=== PATIENT | female | born 1970 | race Caucasian/White ===

== ENCOUNTER 2021-12-30 05:37 | Outpatient (CLI) | payer BC ==
[~2021-12-30] VITALS: Ht 167.6 cm; Wt 123.4 kg
[2021-12-30] MEDS ORDERED: DAPA10TA PO (16:02)
[2021-12-30] MEDS ORDERED: IRBE1TAB67 PO (16:02)
[2021-12-30] MEDS ORDERED: ESCI10TA PO (16:02)
[2021-12-30] MEDS ORDERED: AMLO-250 PO (16:02)
[2021-12-30] MEDS ORDERED: METF-397 PO (16:02)
[2021-12-30] MEDS ORDERED: GABA300C PO (16:02)
[2021-12-30] MEDS ORDERED: MTP25TSR PO (16:02)
[2021-12-30] MEDS ORDERED: MONT10TA21 PO (16:02)
== END 2021-12-30 16:12 | disposition home or self-care (01) ==
LOC: PREOP 05:37
PROVIDERS: ATTEND Podiatrist Foot & Ankle Surgery
DX: Z01.818 Encounter for other preprocedural examination (principal)

== ENCOUNTER 2022-01-06 06:06 | Day surgery (SDC) | payer BC ==
[2022-01-06] VITALS (8 sets, daily range): BP systolic 101–145; BP diastolic 54–75
[~2022-01-06] VITALS: Ht 167.6 cm; Wt 123.4 kg
[~2022-01-06 06:06] MED LIST: AMLO-250 PO; DAPA10TA PO; ESCI10TA PO; GABA300C PO; IRBE1TAB67 PO; METF-397 PO; MONT10TA21 PO; MTP25TSR PO
[2022-01-06] MEDS ORDERED: ceFAZolin INJECTION 1,000 MG VIAL IV ONE (06:30)
[2022-01-06] MEDS ORDERED: LACTATED RINGERS 1,000 ML IV PRN (06:30)
[2022-01-06] MEDS ORDERED: fentaNYL INJ 100 MCG/2 ML AMP ONE (06:57)
[2022-01-06] MEDS ORDERED: MIDAZOLAM 2 MG/2 ML (VERSED) VIAL ONE (06:57)
[2022-01-06] MEDS ORDERED: ONDANSETRON 4 MG/2 ML (SDV) Z0FRAN ONE (06:57)
[2022-01-06] MEDS ORDERED: LIDOCAINE 1% INJ 20 ML VIAL ONE (07:19)
[2022-01-06] MEDS ORDERED: BUPIVACAINE 0.5% 30 ML (SENSORCAINE) VIAL ONE (07:19)
--- NOTE | 2022-01-06 07:48 | Progress Note-Pre Operative ---
Pre-Operative Progress Note H&P Reviewed The H&P was reviewed, patient examined and no changes noted. Date Seen by Provider: Jan 06, 2022 Time Seen by Provider: 07:48 Date H&P Reviewed: Jan 06, 2022 Time H&P Reviewed: 07:48 Pre-Operative Diagnosis: Hammertoe, exostosis, right 5th toe ARCELIA HUBER DPM Jan 06, 2022 07:48
[2022-01-06] MEDS ORDERED: PROPOFOL INJECTION 50 ML IV ONE ×2 (08:03→08:19)
--- NOTE | 2022-01-06 08:41 | Progress Note-Post Operative ---
Post-Operative Progess Note Surgeon (s)/Lead Mechanical Engineer (s) Surgeon ARCELIA HUBER DPM Lead Mechanical Engineer: none Pre-Operative Diagnosis Hammertoe, exostosis, right 5th toe Post-Operative Diagnosis same Procedure & Operative Findings Date of Procedure 01/06/22 Procedure Performed/Findings Reduction of hammertoe, Right 5th Exostectomy, Right 5th toe Anesthesia Type MAC Estimated Blood Loss Estimated blood loss (mL): Minimal Specimens/Packing Specimens Removed None ARCELIA HUBER DPM Jan 06, 2022 08:40
[2022-01-06] MEDS ORDERED: ONDANSETRON 4 MG/2 ML (SDV) Z0FRAN IVP PRN (08:45)
[2022-01-06] MEDS ORDERED: LACTATED RINGERS 1,000 ML IV SCH (08:45)
[2022-01-06] MEDS ORDERED: MEPERIDINE (DEMEROL) INJ 50 MG/ML IVP ONE (08:45)
[2022-01-06] MEDS ORDERED: morphine INJ 10 MG/ML 1ML (SYR OR VIAL) IVP ONE (08:45)
[2022-01-06] MEDS ORDERED: TRAM1TAB7 PO (08:52)
--- NOTE | 2022-01-06 10:48 | Diagnostic Imaging Report ---
INDICATION: History of previous right foot surgery. No previous films for comparison. FINDINGS: 2 views. There is a metal suture in the proximal 1st phalanx. There are moderate arthritic changes noted of the 1st MP joint. Interphalangeal joints show mild arthritic change. No fractures are seen. No periosteal reactive changes. No destructive bony changes. IMPRESSION: 1. 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 Metallic suture within the proximal phalanx 1st digit. Dictated by: Dictated on workstation # [id number]
--- NOTE | 2022-01-06 11:35 | Anesthesia-General Post-Op ---
MAC Patient Condition Mental Status/LOC: Same as Preop Cardiovascular: Satisfactory Nausea/Vomiting: Absent Respiratory: Satisfactory Pain: Controlled Complications: Absent Post Op Complications Complications None Follow Up Care/Instructions Patient Instructions None needed. Anesthesiology Discharge Order Discharge Order Patient is doing well, no complaints, stable vital signs, no apparent adverse anesthesia problems. No complications reported per nursing. COOKIE GUERRERO CRNA Jan 06, 2022 11:35
--- NOTE | 2022-01-06 13:30 | OPERATIVE REPORT ---
DATE OF SERVICE: 01/06/2022 SURGEON: Manasa Huber DPM PREOPERATIVE DIAGNOSES: 1. Hammer digit syndrome. 2. Exostosis to the right fifth toe. POSTOPERATIVE DIAGNOSES: 1. Hammer digit syndrome. 2. Exostosis to the right fifth toe. PROCEDURES PERFORMED: 1. Reduction of hammertoe, right fifth toe. 2. Exostectomy, right fifth toe. WOUND CLASS: Clean. ANESTHESIA: Monitored anesthesia care. HEMOSTASIS: Pneumatic ankle tourniquet at 250 mmHg. INDICATIONS: This 51-year-old female presents with a painful right fifth toe. Conservative therapy has met with unsatisfactory results and the patient is agreeable to surgical intervention after risks and complications were discussed at length. No guarantees were extended to the patient and she is willing to proceed. DESCRIPTION OF PROCEDURE: The patient was brought back to the operating table, placed in secure supine position. Appropriate timeout was performed. Local anesthetic to the right fifth ray was performed utilizing 1:1 mixture of 1% Xylocaine, 0.5% Marcaine injected in a reverse Mosquera block with a total of 10 mL. Pneumatic ankle tourniquet was placed on the right lower extremity over several layers of padding. The right foot was then prepped and draped in normal sterile manner. The right foot was then elevated, allowed to exsanguinate after which the tourniquet was inflated to 250 mmHg. Attention was then directed to the dorsal lateral aspect of the right fifth toe where 2 observations were noted. There is adductor varus contracture of the digit. There is a hyperkeratosis with the bony prominence to the lateral aspect of the lateral nail fold. Attention was directed to the dorsal aspect of the proximal interphalangeal joint where 2 semi-elliptical incisions were made and an orientation of distal medial to proximal lateral. The circumscribed skin was removed. Blunt and sharp dissection was carried out down to the extensor tendon overlying the proximal interphalangeal joint, a transverse tenotomy was performed as well as release of the medial lateral collateral ligaments. The hypertrophic head of the proximal phalanx was identified and resected utilizing power sagittal saw. The wound was flushed with copious amounts of normal saline. The remaining proximal phalanx was smoothed with a rongeur. The wound was flushed once again after which closure was performed in layers. The extensor tendon was repaired with 4-0 Vicryl. Superficial closure was performed with 4-0 Vicryl and skin closure with 4-0 Prolene in a horizontal mattress type stitch. Due to the orientation of the incision, good reduction of the adductor varus contracture was noted at this time. Attention was then directed to the distal lateral aspect of the right fifth toe where a 0.5 cm longitudinal incision was made. The incision was deepened down sharply down to bone where a lateral eminence was identified to the distal phalanx. Bony prominence was reduced utilizing a side cutting bur. Good reduction of the bony prominence was appreciated at this time. The area was cleansed with normal saline after which closure was performed with simple interrupted type stitch with 4-0 Prolene. The wound was then dressed with Betadine-soaked Adaptic, sterile 4 x 4. The tourniquet was released noting appropriate cap refill time to all digits including the right fifth toe. The dressing was completed with a Coban wrap. The patient tolerated the anesthesia and procedure well, was transported from the operating room to the recovery room with vital signs stable and vascular status intact to all digits of the right foot. She is to follow up in my office in 10 days' period of time or sooner if necessary. Job ID: [id number] DocumentID: [id number] Dictated Date: 01/06/2022 09:03:00 [employer] Bus Driver Date: 01/06/2022 13:29:56 Dictated By: MANASA HUBER DPM
== END 2022-01-06 10:15 | disposition home or self-care (01) ==
LOC: SDC 06:06
PROVIDERS: ATTEND Podiatrist Foot & Ankle Surgery
DX: M20.41 Other hammer toe(s) (acquired), right foot (principal); M89.8X7 Other specified disorders of bone, ankle and foot; E66.01 Morbid (severe) obesity due to excess calories; Z68.41 Body mass index [BMI] 40.0-44.9, adult
CPT/HCPCS: 73620; 84703; 87081